=== PATIENT | male | born 2000 | race Caucasian/White ===

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

== ENCOUNTER 2022-08-26 09:08 | Emergency (ER) | payer OTHER ==
[~2022-08-26] VITALS: Ht 190.5 cm; Wt 93.0 kg
[2022-08-26 09:15] VITALS: BP_SYST 150
--- NOTE | 2022-08-26 09:15 | NUR ---
Patient to ER bed 04 to gown for evaluation. Side rails up.
--- NOTE | 2022-08-26 09:27 | NUR ---
DR. BEE AT BEDSIDE TO ASSESS PT. URINE OBTAINED AND TAKEN TO LAB.
[2022-08-26] MEDS ORDERED: IBUPROFEN 600 MG TABLET PO ONE (09:30)
[2022-08-26] MEDS ORDERED: METOCLOPRAMIDE HCL 10 MG TABLET PO ONE (09:30)
[2022-08-26] MEDS ORDERED: ACETAMINOPHEN 500 MG TABLET PO ONE (09:30)
--- NOTE | 2022-08-26 09:36 | NUR ---
SCHEDULED MEDS GIVEN ORDERED FOR HEAD AND LEFT SHOULDER PAIN 03/27. TOLERATED WELL. COLD COMPRESSED PLACED TO LEFT SIDE OF NECK AND LEFT SHOULDER.
--- NOTE | 2022-08-26 11:15 | NUR ---
DR. BEE AT BEDSIDE TO DISCUSS POC.
--- NOTE | 2022-08-26 11:24 | NUR ---
Patient given written and verbal discharge instructions and verbalizes understanding. ER MD discussed with patient the results and treatment provided. Patient in stable condition. ID arm band removed. Patient educated on pain management and to follow up with PMD. Pain Scale 2/10. Opportunity for questions provided and answered. Medication side effect fact sheet provided.
[2022-08-26 11:30] VITALS: BP_SYST 139
== END 2022-08-26 11:24 | disposition home or self-care (01) ==
LOC: SED 09:08
DX: M25.512 Pain in left shoulder (principal); R51.9 Headache, unspecified; R42 Dizziness and giddiness; Z79.899 Other long term (current) drug therapy; V49.40XA Driver injured in collision with unspecified motor vehicles in traffic accident, initial encounter; Y93.89 Activity, other specified; Y92.89 Other specified places as the place of occurrence of the external cause; Y99.8 Other external cause status
CPT/HCPCS: 99284; 73030; J8597